=== PATIENT | female | born 1945 | race Caucasian/White ===

== ENCOUNTER 2019-10-04 16:36 | Observation (INO) | payer OTHER ==
--- OUTSIDE RECORDS SUMMARY | 2019-10-04 16:38 | XMS REPORT | Clinical Summary ---
:1945 Author Organization [facility] Address [address] [place] [address] Care Team Providers Name Role Phone [place] Daily MD Primary Care Provider Allergies Active Allergy Reactions Severity Noted Date Comments Morphine Medications Medication Sig Dispensed Refills Start End Date Status Date DENAVIR 1 % cream APPLY THREE (3) 0 Active TIMES DAILY FOR 7 FOUR (4) DAYS. valACYclovir 1 DAY DOSE AT 0 Act anali (VALTREX) 500 MG ONSET OF 7 tablet SYMPTOMS: TAKE 4 TABLETS IMMEDIATELY TYHEN 4 TABLETS 12 HOURS LATER. rosuvastatin TAKE 1 TABLET 90 tablet 0 12/24/19 Act anlai (CRESTOR) 10 MG (10 MG TOTAL) BY 9 20 tablet MOUTH NIGHTLY. FOR CHOLESTEROL LYSINE ORAL Take by mouth. 0 Act anali cholecalciferol, Take 1 capsule 12 capsule 3 0 Discontinued vitamin D3, (50,000 Units 9 20 (Med List 50,000 unit total) by mouth Cl eanup) capsule once a week. rosuvastatin Take 1 tablet 90 tablet 0 12/24/19 Dis continued (CRESTOR) 10 MG (10 mg total) by 9 19 (Reorder) tablet mouth nightly. For cholesterol Active Problems Problem Noted Date Constipation 08/29/2017 History of malignant neoplasm of breast 08/29/2017 Osteoporosis 08/29/2017 Encounters Date Type Specialty Care Team Description 10/02/2019 Office Visit Internal Medicine Marcus Daily Medicare annual wellness visit, subsequent (Primary Dx); MD [place] Mixed hyperlipi demia; Screening for b reast cancer; Screening for d iabetes mellitus; Vitamin D defic iency; Age-related ost eoporosis without current pathological fracture; Atherosclerosis ; History of gentry gnant neoplasm of breast; Skin lesion 10/02/2019 Travel 07/17/2019 Travel 03/21/2019 Telephone Internal Medicine Marcus Daily MD 12/23/2018 Refill Internal Medicine Marcus Daily MD 10/05/2018 Hospital Encounter Radiology Marcus Daily Mixed hy perlipidemia MD [place] 10/05/2018 Hospital Encounter Radiology Marcus Daily Screenin g for breast MD [place] cancer after 10/03/2018 Immunizations Name Administration Dates Next Due Influenza, Unspecified 01/08/2016 Pneumococcal Conjugate 13-Valent 09/29/2018 Pneumococcal Polysaccharide 04/17/2013 Family History Medical History Relation Name Comments Cancer Sister Relation Name Status Comments Sister Social History Tobacco Use Types Packs/Day Years Used Date Current Every Day Smoker Smokeless Tobacco: Never Used Alcohol Use Drinks/Week oz/Week Comments No Sex Assigned at Date Recorded Not on file Job Start Date Occupation Industry Not on file Not on file Not on file Travel History Travel Start Travel End No recent travel history available. COVID-19 Exposure Response Date Recorded In the last month, have you been in contact with No / Unsure 10/02/2019 8:41 AM CDT someone who was confirmed or suspected to have Coronavirus / COVID-19? Last Filed Vital Signs Vital Sign Reading Time Taken Comments Blood Pressure 118/74 10/02/2019 8:58 AM CDT Pulse 70 10/02/2019 8:58 AM CDT Temperature 36.7 C (98 F) 10/02/2019 8:58 AM CDT Respiratory Rate 18 10/02/2019 8:58 AM CDT Oxygen Saturation 100% 10/02/2019 8:58 AM CDT Inhaled Oxygen Concentration - - Weight 58.5 kg (129 lb) 10/02/2019 8:58 AM CDT Height 170.2 cm (5' 7") 10/02/2019 8:58 AM CDT Body Mass Index 20.2 10/02/2019 8:58 AM CDT Plan of Treatment Health Maintenance Due Date Last Done Comments SHINGLES VACCINES (#1) 09/23/1993 INFLUENZA VACCINE 11/08/2019 01/08/2016 COLONOSCOPY SCREENING 02/17/2026 02/18/2016 65+ PNEUMOCOCCAL VACCINE Completed 09/29/2018, 04/17/2013 Procedures Procedure Name Priority Date/Time Associated Diagnosis Comme nts VITAMIN D 25 HYDROXY Routine 10/02/2019 10:05 Medicare annual Results for this LEVEL AM CDT wellness visit, procedure ar e in subsequent the results Vitamin D defici ency section. Age-related osteoporosis without current pathological fracture VITAMIN B12 LEVEL Routine 10/02/2019 10:05 Medicare annual Res ults for this AM CDT wellness visit, procedure ar e in subsequent the results section. THYROID STIMULATING Routine 10/02/2019 10:05 Medicare annual R esults for this HORMONE AM CDT wellness visit, procedure ar e in subsequent the results section. URINALYSIS, COMPLETE, Routine 10/02/2019 10:05 Medicare annual Results for this WITH REFLEX TO AM CDT wellness visit, procedure are in CULTURE subsequent the results section. LIPID PANEL Routine 10/02/2019 10:05 Medicare annual Results for this AM CDT wellness visit, procedure ar e in subsequent the results Mixed hyperlipidemia section . HEMOGLOBIN A1C Routine 10/02/2019 10:05 Medicare annual Result s for this AM CDT wellness visit, procedure ar e in subsequent the results Screening for diabetes secti on. mellitus COMPREHENSIVE Routine 10/02/2019 10:05 Medicare annual Results for this METABOLIC PANEL AM CDT wellness visit, procedure are in subsequent the results section. CBC WITH PLATELET AND Routine 10/02/2019 10:05 Medicare annual Results for this DIFFERENTIAL AM CDT wellness visit, procedure ar e in subsequent the results section. URINE CULTURE Routine 10/02/2019 10:05 Results fo r this AM CDT procedure are i n the results section. CT CARDIAC CALCIUM Routine 10/05/2018 12:40 Mixed hyperlipidem ia Results for this SCORE PM CDT procedure are i n the results section. MAMMO BREAST SCREEN Routine 10/05/2018 12:05 Screening for lexy ast Results for this TOMOSYNTHESIS PM CDT cancer procedure are in BILATERAL the results section. after 10/03/2018 Results URINALYSIS, COMPLETE, WITH REFLEX TO CULTURE (10/02/2019 10:05 AM CDT) Color, UA YELLOW YELLOW [facility] [place] Appearance CLEAR CLEAR [facility] [place] Specific gravity, 1.007 1.001 - 1.035 [facility] urine [place] pH, urine 5.5 5.0 - 8.0 [facility] [place] Glucose, urine NEGATIVE NEGATIVE [facility] [place] Bilirubin, UA NEGATIVE NEGATIVE [facility] [place] Ketones, UA NEGATIVE NEGATIVE [facility] [place] Occult blood, TRACE (A) NEGATIVE [facility] urine [place] Protein, UA NEGATIVE NEGATIVE [facility] [place] Nitrite, UA NEGATIVE NEGATIVE [facility] [place] Leukocyte TRACE (A) NEGATIVE [facility] esterase, UA [place] WBC, UA NONE SEEN < OR = 5 /HPF [facility] [place] RBC, UA NONE SEEN < OR = 2 /HPF [facility] [place] Squamous NONE SEEN < OR = 5 /HPF [facility] epithelial cells, [place] UA Bacteria, UA NONE SEEN NONE SEEN /HPF [facility] [place] Hyaline casts, UA NONE SEEN NONE SEEN /LPF [facility] [place] Reflex CULTURE [facility] [place] RESULTS TO FOLLOW Specimen Narrative Performed At FASTING:YES [facility] FASTING: YES Resulting Agency Comment Performing Organization Information: Site ID: [id number]: [facility] Address: [address] [place] [phone] Director: Brandon Neff Performing Organization Address City/[facility] Centercode Phone Number [employer] [address] [address] Vitamin D 25 hydroxy level (10/02/2019 10:05 AM CDT) Vitamin D, 24 (L) 30 - 100 [facility] 25-hydroxy Comment: ng/mL [place] Vitamin D Status 25-OH Vitamin D: Deficiency: <20 ng/mL Insufficiency: 20 - 29 ng/mL Optimal: > or = 30 ng/mL For 25-OH Vitamin D testing on patients on D2-supplementation and patients for whom quantitation of D2 and D3 fractions is required, the [facility](T M) 25-OH VIT D, (D2,D3), LC/MS/MS is recommended: order code 95940 (patients >2yrs). See Note 1 Note 1 For additional information, please refer to http://education.farmaciamarket/faq/BMW457 (This link is being provided for informational/ educational purposes only.) Specimen Blood Narrative Performed At FASTING:YES [facility] FASTING: YES Resulting Agency Comment Performing Organization Information: Site ID: [facility]: [facility] Address: [address] [place] [phone] Director: Brandon Neff Performing Organization Address City/[facility]/Zipcode Phone Number [employer] [address] [place] [address] CBC with platelet and differential (10/02/2019 10:05 AM CDT) WBC 7.3 3.8 - 10.8 [facility] Thousand/uL [place] RBC 4.86 3.80 - 5.10 [facility] Million/uL [place] HGB 14.9 11.7 - 15.5 [facility] g/dL [place] HCT 45.4 (H) 35.0 - 45.0 % [facility] [place] MCV 93.4 80.0 - 100.0 fL [facility] [place] MCH 30.7 27.0 - 33.0 pg [facility] [place] MCHC 32.8 32.0 - 36.0 [facility] g/dL [place] RDW 12.8 11.0 - 15.0 % [facility] [place] Platelet count 219 140 - 400 [facility] Thousand/uL [place] MPV 10.6 7.5 - 12.5 fL [facility] [place] Neutrophils, absolute 4,358 1,500 - 7,800 [facility] cells/uL [place] Lymphocytes, absolute 2,380 850 - 3,900 [facility] cells/uL [place] Monocytes, absolute 431 200 - 950 [facility] cells/uL [place] Eosinophils, absolute 80 15 - 500 [facility] cells/uL [place] Basophils, absolute 51 0 - 200 [facility] cells/uL [place] Neutrophils 59.7 % [facility] [place] Lymphocytes 32.6 % [facility] [place] Monocytes 5.9 % [facility] [place] Eosinophils 1.1 % [facility] [place] Basophils + RC 0.7 % [facility] [place] Specimen Blood Narrative Performed At FASTING:YES [facility] FASTING: YES Resulting Agency Comment Performing Organization Information: Site ID: [facility]: [facility] Address: [address] [place] [phone] Director: Brandon Neff Performing Organization Address City/State/Zipcode Phone Number [facility] [address] [address] Urine culture (10/02/2019 10:05 AM CDT) Pathologist Sig nature Urine culture SEE NOTE [facility] Comment: [place] CULTURE, URINE, ROUTINE Micro Number: [id number] Test Status: Final Specimen Source: URINE Specimen Quality: Adequate Result: No Growth Specimen Narrative Performed At FASTING:YES [facility] FASTING: YES Resulting Agency Comment Performing Organization Information: Site ID: [facility]: [facility] Address: [address] [place] [phone] Director: Brandon Neff Performing Organization Address [facility] Centercode Phone Number [employer] [address] [address] Thyroid stimulating hormone (10/02/2019 10:05 AM CDT) Pathologist Sig nature TSH 2.75 0.40 - 4.50 mIU/L [facility] Specimen Blood Narrative Performed At FASTING:YES [facility] FASTING: YES Resulting Agency Comment Performing Organization Information: Site ID: [facility] Name: [facility] Address: [address] [place] [phone] Director: Brandon Neff Performing Organization Address [facility] Phone Number [employer] [address] [address] Hemoglobin A1c (10/02/2019 10:05 AM CDT) Pathologist [facility] Hemoglobin A1C 5.7 (H) <5.7 % of [facility] Comment: total Hgb [place] For someone without known diabetes, a hemoglobin A1c value between 5.7% and 6.4% is consistent with prediabetes and should be confirmed with a follow-up test. For someone with known diabetes, a value <7% indicates that their diabetes is well controlled. A1c targets should be individualized based on duration of diabetes, age, comorbid conditions, and other considerations. This assay result is consistent with an increased risk of diabetes. Currently, no consensus exists regarding use of hemoglobin A1c for diagnosis of diabetes for children. Specimen Blood Narrative Performed At FASTING:YES [facility] FASTING: YES Resulting Agency Comment Performing Organization Information: Site ID: [facility]: [facility] Address: [address] [place] [phone] Director: Brandon Neff Performing Organization Address [facility] Centercoky Phone Number [employer] [address] [address] Vitamin B12 level (10/02/2019 10:05 AM CDT) Pathologist [facility] Vitamin B12 264 200 - 1,100 [facility] Comment: pg/mL [place] Please Note: Although the reference range for vitamin B12 is 200-1100 pg/mL, it has been reported that betwe en 5 and 10% of patients with values between 200 and 400 pg/mL may experience neuropsychiatric and hematologic abnormalities due to occult B12 deficiency; less than 1% of patients with values above 400 pg/mL will have symp toms. Specimen Blood Narrative Performed At FASTING:YES [facility] FASTING: YES Resulting Agency Comment Performing Organization Information: Site ID: [facility] Name: [facility] Address: [address] [place] [phone] Director: Brandon Neff Performing Organization Address City/State/Zipcode Phone Number [employer] [address] [address] Lipid panel (10/02/2019 10:05 AM CDT) [facility] Cholesterol, total 245 (H) <200 mg/dL [facility] HDL cholesterol 53 > OR = 50 [facility] mg/dL [place] Triglycerides 169 (H) <150 mg/dL [facility] LDL cholesterol 160 (H) mg/dL (calc) [facility] calculated Comment: [place] Reference range: <100 Desirable range <100 mg/dL for primary prevention; <70 mg/dL for patients with CHD or diabetic patients with > or = 2 CHD risk factors. LDL-C is now calculated using the Kvng-Azul calculation, which is a validated novel method providi ng better accuracy than the Friedewald equation in the estimation of LDL-C. Kvng WEAVER et al. KULWANT. 2013;310(19): 4859-5921 (http://education.DGSE.Alta Analog/faq/UNB561) Cholesterol/HDL 4.6 <5.0 (calc) [facility] Non-HDL cholesterol 192 (H) <130 mg/dL [facility] Comment: (calc) [place] For patients with diabetes plus 1 major ASCVD risk factor, treating to a non-HDL-C goal of <100 mg/dL (LDL-C of <70 mg/dL) is considered a therapeutic option. Specimen Blood Narrative Performed At FASTING:YES [facility] FASTING: YES Resulting Agency Comment Performing Organization Information: Site ID: [facility]: [facility] Address: [address] [place] [phone] Director: Brandon Neff Performing Organization Address [facility]/Zipcode Phone Number [employer] [place] [address] [place] [address] Comprehensive metabolic panel (10/02/2019 10:05 AM CDT) Glucose 89 65 - 99 [facility] Comment: mg/dL [place] Fasting reference interval BUN 9 7 - 25 mg/dL [facility] [place] Creatinine 0.80 0.60 - 0.93 [facility] Comment: mg/dL [place] For patients >49 years of age, the reference limit for Creatinine is approximately 13% higher for people identified as -[place]. EGFR Non-Afr. 72 > OR = 60 [facility] [place] mL/min/1.73m [place] 2 EGFR 83 > OR = 60 [facility] [place] mL/min/1.73m [place] 2 BUN/creatinine NOT APPLICABLE 6 - 22 [facility] ratio (calc) [place] Sodium 139 135 - 146 [facility] mmol/L [place] Potassium 4.2 3.5 - 5.3 [facility] mmol/L [place] Chloride 102 98 - 110 [facility] mmol/L [place] CO2 30 20 - 32 [facility] mmol/L [place] Calcium 9.3 8.6 - 10.4 [facility] mg/dL [place] Protein 7.2 6.1 - 8.1 [facility] g/dL [place] Albumin, S 4.4 3.6 - 5.1 [facility] g/dL [place] Globulin, total 2.8 1.9 - 3.7 [facility] g/dL (calc) [place] Albumin/globulin 1.6 1.0 - 2.5 [facility] ratio (calc) [place] Total bilirubin 0.4 0.2 - 1.2 [facility] mg/dL [place] Alkaline 69 37 - 153 U/L [facility] phosphatase [place] AST 16 10 - 35 U/L [facility] [place] ALT 12 6 - 29 U/L [facility] [place] Specimen Blood Narrative Performed At FASTING:YES [facility] FASTING: YES Resulting Agency Comment Performing Organization Information: Site ID: RGA Name: [facility] Address: [address] [place] [address] Director: Brandon Neff Performing Organization Address City/[facility]/Zipcode Phone Number [employer] [place] [address] [place] [address] Ct cardiac calcium score (10/05/2018 12:40 PM CDT) Specimen Narrative Performed At EXAMINATION: CT CARDIAC CALCIUM SCORE RADIANT CLINICAL HISTORY: E78.2 Mixed hyperlipidemia, CAD ri sk intermediate asymptomatic, mixed HLD elev apo B - please eval coronaries COMPARISON: Chest CT from September 02 8. IMPRESSION: Sequential 2.[address] cuts were obtained through the est using GE LightSpeed VCT [address] scanner with ECG gating. In teractive image viewing and volumetric display and analysis were also performed. The CAC score was quantified using the Agatston scoring method. Agatston total coronary artery calcium s core: 0 Left Main (LM): 0 Left Anterior Descending (LAD): 0 Left Circumflex (LCx): 0 Right Coronary Artery (RCA): 0 Posterior Descending Artery (PDA): 0 Agatston Calcium Score (total) Extent of Atherosclerosis 0-Normal 1-10 - Minimal extent of atherosclerosis 10-100 - Mild extent of atherosclerosis 100-400 - Moderate extent of atheroscler osis > 400 - Severe extent of atherosclerosis RECOMMENDATION: A score of 0 places the patient in the 0th percentile rank. That means 100% of the females at the ages from 71- 75 have a higher calcium score. Continue primary preventative strategies (score zero). INCIDENTAL FINDINGS: 1. Aortic calcifications. 2. Stable 3-4 mm solid nodule in the right middle lo be, 3 mm groundglass nodule in the lingula and ar eas of mucous plugging. 3. Trace pericardial effusion. [id number] Procedure Note Hm Interface, Radiology Results Incoming - 10/05/2018 1:34 PM CDT EXAMINATION: CT CARDIAC CALCIUM SCORE CLINICAL HISTORY: E78.2 Mixed hyperlipi demia, CAD risk intermediate asymptomatic, mixed HLD elev apo B - please eval coronaries COMPARISON: Chest CT from September 02, 2017 . IMPRESSION: Sequential 2.[address] cuts were obtained through the chest using GE LightSpeed VCT [address] scanner with ECG gating. Interactive image viewing and volumetric display and analysis were also performed. The CAC score was quantified using the Agatston scoring method. Agatston total coronary artery calcium s core: 0 Left Main (LM): 0 Left Anterior Descending (LAD): 0 Left Circumflex (LCx): 0 Right Coronary Artery (RCA): 0 Posterior Descending Artery (PDA): 0 Agatston Calcium Score (total) Extent of Atherosclerosis 0-Normal 1-10 - Minimal extent of atherosclerosis 10-100 - Mild extent of atherosclerosis 100-400 - Moderate extent of atheroscler osis > 400 - Severe extent of atherosclerosis RECOMMENDATION: A score of 0 places the patient in the 0 th percentile rank. That means 100% of the females at the ages from 71-75 have a higher calcium score. Continue primary preventative strategies (score zero). INCIDENTAL FINDINGS: 1. Aortic calcifications. 2. Stable 3-4 mm solid nodule in the ri ght middle lobe, 3 mm groundglass nodule in the lingula and areas of mucous plugging. 3. Trace pericardial effusion. [id number] Performing Organization Address City/[facility]/Zipcode Phone Number [employer] [address] [place] [address] Mammo Breast Screen Tomosynthesis Bilateral (10/05/2018 12:05 PM CDT) Specimen Narrative Performed At PROCEDURE: MAMMO BREAST SCREEN TOMOSYNTH ESIS BILATERAL [employer] Computer aided detection was utilized for the interpre tation of the digital bilateral screening mammography with tomosynthesis. COMPARISON: None available. INDICATION: 73-year-old female with a history of right breast malignancy with lumpectomy and radiation in 2000. She presents fo r routine screening. FINDINGS: The breast are heterogenously dense, which m ay obscure small masses. There is a postsurgical scar with associated dystrophi c calcifications in the right superior posterior depth. No significant mass, asymmetry or architectural distortion is identified i n either breast. IMPRESSION: No mammographic evidence o f malignancy. RECOMMENDATION: Annual screening mammogr am. BI-RADS 2: BENIGN This facility is accredited by The [employer] for Mammography. A negative x-ray report should not delay biopsy if a d ominant or clinically suspicious mass is present. Not all cancers are identified by x-ray. [id number] Performing Organization Address City/State/Zipcode Phone Number [employer] [address] [place] [address] after 10/03/2018 Insurance Payer Benefit Plan / Subscriber ID Effective Dates Phone Addre ss Type Group HUMANA MEDICARE HUMANA MEDICARE xxxxxxxxx 2017-Present PPO PPO/PFFS/ERS [facility] Advance Directives For more information, please contact: [phone] Type Date Recorded Patient Director Marketing Communications Explanati on Advance Directives, Living Will and Medical Power of Skiagrapher
--- OUTSIDE RECORDS SUMMARY | 2019-10-04 16:39 | XMS REPORT | Continuity of Care Document ---
:1945 Author Organization [facility] t Address [address] [place] [address] Care Team Providers Name Role Phone Rome Daily MD Primary Care Physician Rome Daily MD Attending Clinician Payers Payer Name Policy Type Policy Number Effective Date Expiration Source Date HUMANA xxxxxxxxx 2017 [place] MEDICAREHUMANA 00:00:00 [place] MEDICARE PPO/PFFS/ERS MCRxxxxxxxxx1/ 8-PresentPPO Problems Condition Condition Condition Status Onset Resolution Last Treating Co mments Source Name Details Category Date Date Treatment Clinician Date Constipati Constipati Disease Active [place] on 08-29 Methodi 00:00: st 00 History of History of Disease Active [place] malignant malignant 08-29 Meth iván neoplasm neoplasm 00:00: st of breast of breast 00 Osteoporos Osteoporos Disease Active [place] is is 08-29 Methodi 00:00: st 00 Allergies, Adverse Reactions, Alerts Allergy Allergy Status Severity Reaction(s) Onset Inactive Treating Comm ents Source Name Type Date Date Clinician Morphine Propensi Active [place] ty to Methodi adverse st reaction s to drug Family History Family Member Diagnosis Comments Start Date Stop Date Source Natural [facility] Social History Social Habit Start Date Stop Date Quantity Comments Source Sex Assigned At [facility] ethodist Exposure to Not sure [place] Metho dist SARS-CoV-2 (event) Alcohol intake 2019-10-02 2019-10-02 [facility] 00:00:00 non-drinker of alcohol (finding) Smoking Status Start Date Stop Date Source Current every day smoker 2019-10-02 00:00:00 Valeria ston [facility] Medications Ordered Filled Start Stop Current Ordering Indication Dosage Frequency Signature Comments Components Source Medication Medication Date Date Medication? Clinician (SIG) Name Name LYSINE ORAL Yes Take by Valeria ston 8-25 mouth. Methodi 09:00: st 06 rosuvastati 2018-02 2020- No 10mg QD TAKE 1 Valeria ston n (CRESTOR) 1-17 11-16 TABLET (10 M ethodi 10 MG 00:00: 23:59 MG TOTAL) st tablet 00 :00 BY MOUTH NIGHTLY. FOR CHOLESTERO L cholecalcif No [id number] Q7D Take 1 [place] danette, 8-25 capsule Methodi vitamin D3, 00:00: 00:00 (50,000 st 50,000 unit 00 :00 Units capsule total) by mouth once a week. rosuvastati No 10mg QD Take 1 Valeria ston n (CRESTOR) 8- 11-16 tablet (10 M ethodi 10 MG 00:00: 00:00 mg total) st tablet 00 :00 by mouth nightly. For cholestero l DENAVIR 1 % Yes APPLY [place] cream - THREE (3) Methodi 00:00: TIMES st 00 DAILY FOR FOUR (4) DAYS. valACYclovi Yes 1 DAY DOSE Dimas r (VALTREX) 6-28 AT ONSET Meth iván 500 MG 00:00: OF st tablet 00 SYMPTOMS: TAKE 4 TABLETS IMMEDIATEL Y TYHEN 4 TABLETS 12 HOURS LATER. Immunizations Ordered Immunization Filled Immunization Date Status Commen ts Source Name Name Pneumococcal 2018-09-29 Completed [place] Conjugate 13-Valent 00:00:00 [facility] dist Influenza, 2016-01-08 Completed [place] Unspecified 00:00:00 [facility] Pneumococcal 2013-04-17 Completed [place] Polysaccharide 00:00:00 [facility] Vital Signs Vital Name Observation Time Observation Value Comments Source Systolic blood 2019-10-02 08:58:00 118 mm[Hg] [place] [facility] pressure Diastolic blood 2019-10-02 08:58:00 74 mm[Hg] [place] [facility] pressure Heart rate 2019-10-02 08:58:00 70 /min Wing Brito Body temperature 2019-10-02 08:58:00 36.67 Sophie Aba jan [facility] Respiratory rate 2019-10-02 08:58:00 18 /min Aba jan [facility] Body height 2019-10-02 08:58:00 170.2 cm Wing Brito Body weight 2019-10-02 08:58:00 58.514 kg Wing Brito BMI 2019-10-02 08:58:00 20.20 kg/m2 Wing Brito Oxygen saturation in 2019-10-02 08:58:00 100 /min Wing Brito Arterial blood by Pulse oximetry Procedures Procedure Date / Time Performed Performing Clinician Sourc e URINE CULTURE 2019-10-02 10:05:00 Marcus Daily CBC WITH PLATELET AND 2019-10-02 10:05:00 Marcus Daily DIFFERENTIAL COMPREHENSIVE METABOLIC 2019-10-02 10:05:00 Marcus Daily PANEL HEMOGLOBIN A1C 2019-10-02 10:05:00 Marcus Daily LIPID PANEL 2019-10-02 10:05:00 Marcus Daily URINALYSIS, COMPLETE, 2019-10-02 10:05:00 Marcus Daily WITH REFLEX TO CULTURE THYROID STIMULATING 2019-10-02 10:05:00 Marcus Daily HORMONE VITAMIN B12 LEVEL 2019-10-02 10:05:00 Marcus Daily VITAMIN D 25 HYDROXY 2019-10-02 10:05:[address] CARDIAC CALCIUM SCORE 2018-10-05 12:40:00 Marcus Daily MAMMO BREAST SCREEN 2018-10-05 12:05:28 Marcus Daily TOMOSYNTHESIS BILATERAL Plan of Care Planned Activity Planned Date Details Comments Source Future Scheduled 2026-02-17 COLONOSCOPY SCREENING Yovany Brito Test 00:00:00 [code = COLONOSCOPY SCREENING] Future Scheduled 2019-11-08 INFLUENZA VACCINE Abato n Sabianist Test 00:00:00 [code = INFLUENZA VACCINE] Future Scheduled 1993-09-23 SHINGLES VACCINES [place] [facility] Test 00:00:00 (#1) [code = SHINGLES VACCINES (#1)] Encounters Start End Encounter Admission Attending Care Care Encounter Source Date/Time Date/Time Type Type Clinicians Facility Department ID 2019-10-02 2019-10-02 Outpatient [facility] [id number] [place] 00:00:00 00:00:[address]ARCUS [address] Results Test Description Test Time Test Comments Results Result Comments Source Comprehensive metabolic panel 2019-10-04 09:33:00 Test Item Value Reference Range Interpretation Comme nts Glucose (test code = 89 mg/dL 65-99 Fasting 2345-7) reference inter diana BUN (test code = 9 mg/dL 08-31 3094-0) Creatinine (test code 0.80 mg/dL 0.6-0.93 For pa tients >49 years of = 2160-0) age, the refere nce limitfor Creati nine is approximately 1 3% higher for peopleident ified as -Helen n. EGFR Non-Afr. 72 > OR = 60 Australian (test code = mL/min/1.73m2 2775) EGFR 83 > OR = 60 (test code = 33393-8) mL/min/1.73m2 BUN/creatinine ratio NOT APPLICABLE 6- 22 (calc) (test code = 3097-3) Sodium (test code = 139 mmol/L 394-659 4948-2) Potassium (test code 4.2 mmol/L 3.5-5.3 = 2823-3) Chloride (test code = 102 mmol/L 98-110 5-0) CO2 (test code = 30 mmol/L 20-32 2027-9) Calcium (test code = 9.3 mg/dL 8.6-10.4 54797-0) Protein (test code = 7.2 g/dL 6.1-8.1 2885-2) Albumin, S (test code 4.4 g/dL 3.6-5.1 = 1751-7) Globulin, total (test 2.8 1.9- 3.7 g/dL code = 95336-9) (calc) Albumin/globulin 1.6 1.0- 2.5 (calc) ratio (test code = 1759-0) Total bilirubin (test 0.4 mg/dL 0.2-1.2 code = 1974-2) Alkaline phosphatase 69 U/L 37-153 (test code = 6768-6) AST (test code = 16 U/L 10-35 1920-8) ALT (test code = 12 U/L 6-29 1742-6) RAY (test code = RAY) FASTING:YESFASTING: YES RAC (test code = RAC) Performing Organization Information: Site ID: HERBERT [facility]: [facility] Address: [address] [place] [phone] Director: Brandon Neff [place] MethodistLipid [id number] 09:33:00 Test Item Value Reference Range Interpretation Comments Cholesterol, total 245 mg/dL <200 H (test code = 2093-3) HDL cholesterol 53 mg/dL > OR = 50 (test code = 2085-9) Triglycerides (test 169 mg/dL <150 H code = 2571-8) LDL cholesterol 160 mg/dL (calc) H Reference ra nge: calculated (test <100 Desira ble code = 93373-1) range <100 m g/dL for primary prevention; <7 0 mg/dL for patients with C HD or diabetic patients with > or = 2 CHD risk factors. LDL-C is now calculated using the Kvng-Jorge Alberto calculation, which is a validated novel method providin g better accuracy than the Friedewald equation in the estimation of LDL-C. Kvng S S et al. KULWANT. 2013;310(19): 8824-0111 (http://educati on .[employer] .com/faq/RHI621 ) Cholesterol/HDL 4.6 <5.0 (calc) ratio (test code = 9830-1) Non-HDL cholesterol 192 <130 mg/dL H For [place] ents with (test code = (calc) diabetes plus 1 08922-3) major ASCVD ris k factor, treatin g to a non-HDL-C goal of <100 mg/dL (LDL-C of <70 mg/dL) is considered a therapeutic option. RAY (test code = FASTING:YESFASTING RAY) : YES RAC (test code = Performing RAC) Organization Information: Site ID: HEBRERT [facility]: [facility] Address: [address] [place] [address] Director: Brandon Neff Lab Interpretation Abnormal (test code = 74237-3) [place] MethodistVitamin B12 [id number] 09:33:00 Test Item Value Reference Interpretation Comments Range Vitamin B12 264 pg/mL 200-1100 Please Note: A lthough the (test code = reference range for 2132-9) itmbpfkC33 is 2 00-1100 pg/mL, it has b een reported that between5 a nd 10% of patients with v alues between 200 and 400pg/m L may experience neur opsychiatric and hematologic abnormalities due to occult B 12 deficiency; les s than 1%of patients with v alues above 400 pg/mL will have symptoms. RAY (test FASTING:YESFASTIN code = RAY) G: YES RAC (test Performing code = RAC) Organization Information: Site ID: RGA Name: [facility] Address: [address] [place] [address] Director: Brandon Neff [place] MethodistHemoglobin [id number] 09:33:00 Test Item Value Reference Interpretation Comments Range Hemoglobin A1C 5.7 <5.7 % of H For someone w ithout (test code = total Hgb known diabetes, a 4548-4) hemoglobin A1c value between 5.7% an d 6.4% is consist ent withprediabetes and should be confi rmed with a follow-u p test. For someo ne with known diab etes, a value <7%indicates that their diabetes is well controlled . C2yhiemvfh shou ld be individualized based on duration ofdiabetes, age , comorbid condit ions, and otherconsiderat ions. This assay resu lt is consistent with an increased risko f diabetes. Curre ntly, no consensus ex ists regarding use ofhemoglobin A1 c for diagnosis of diabetes for children. RAY (test code = FASTING:YESFASTIN RAY) G: YES RAC (test code = Performing RAC) Organization Information: Site ID: RGA Name: [facility] Address: [address] [place], [place] [id number] Director: Brandon Neff Lab Interpretation Abnormal (test code = 31372-9) [place] MethodistThyroid stimulating [id number] 09:33:00 Test Item Value Reference Range Interpretation Comments TSH (test code = 2.75 0.40- 4.50 mIU/L 3016-3) RAY (test code = FASTING:YESFASTING: YES RAY) RAC (test code = Performing Organization RAC) Information: Site ID: RGA Name: [facility] Address: [address] [place], [place] [id number] Director: Brandon BritoUrine [id number] 09:33:00 Test Item Value Reference Range Interpretation Comments Urine culture SEE NOTE CULTURE, URI NE, (test code = ROUTINE Mendoza ro 630-4) Number: [id number] Test Status: Final Specimen Source: URINE Specimen Qualit y: Adequate Result: No Growth RAY (test code = FASTING:YESFASTING: RAY) YES RAC (test code = Performing RAC) Organization Information: Site ID: [facility] Name: [facility] Address: [address] [place] [address] Director: Brandon Neff [place] MethodistCBC with platelet and [id number] 09:33:00 Test Item Value Reference Range Interpretation Comments WBC (test code = 7.3 3.8- 10.8 6690-2) Thousand/uL RBC (test code = 789-8) 4.86 3.80- 5.10 Million/uL HGB (test code = 718-7) 14.9 g/dL 11.7-15.5 HCT (test code = 45.4 % 35-45 H 4544-3) MCV (test code = 787-2) 93.4 fL 80-100 MCH (test code = 785-6) 30.7 pg 27-33 MCHC (test code = 32.8 g/dL 32-36 786-4) RDW (test code = 788-0) 12.8 % 11-15 Platelet count (test 219 140- 400 code = 777-3) Thousand/uL MPV (test code = 776-5) 10.6 fL 7.5-12.5 Neutrophils, absolute 4358 1,500 - 7,800 (test code = 751-8) cells/uL Lymphocytes, absolute 2380 850- 3,900 (test code = 731-0) cells/uL Monocytes, absolute 431 200- 950 cells/uL (test code = 742-7) Eosinophils, absolute 80 15- 500 cells/uL (test code = 711-2) Basophils, absolute 51 0- 200 cells/uL (test code = 704-7) Neutrophils (test code 59.7 % = 770-8) Lymphocytes (test code 32.6 % = 736-9) Monocytes (test code = 5.9 % 5905-5) Eosinophils (test code 1.1 % = 713-8) Basophils + RC (test 0.7 % code = 706-2) RAY (test code = RAY) FASTING:YESFASTING: YES RAC (test code = RAC) Performing Organization Information: Site ID: A Name: [facility] Address: [address] [place] [phone] Director: Brandon Neff Lab Interpretation Abnormal (test code = 04578-0) [place] MethodistVitamin D 25 hydroxy [id number] 09:33:00 Test Item Value Reference Range Interpretation Comments Vitamin D, 24 ng/mL 30-100 L Vitamin D Statu s 25-hydroxy (test 25-O H code = 1988-04) Vitamin D: Deficiency: <2 0 ng/mLInsufficie nc y: 20 - 29 ng/mLOptimal: > o r = 30 ng/mL For 25-OH Vitamin D testing on patients on D2-supplementat io n and patients for whom quantitation of D2 and D3 fractions is required, the QuestAssureD(TM )2 5-OH VIT D, (D2,D3), LC/MS/ MS is recommended: order code 9288 8 (patients >2yrs).See Note 1 Note 1 For additional information, please refer to http://educatio n. [employer]. com/faq/ZXN479 (This link is being provided for informational/e du cational purpos es only.) RAY (test code = FASTING:YESFASTING RAY) : YES RAC (test code = Performing RAC) Organization Information: Site ID: A [facility]: [facility] Address: [address] [place] [phone] Director: Brandon Neff Lab Interpretation Abnormal (test code = 29514-3) [place] MethodistURINALYSIS, COMPLETE, WITH REFLEX TO [id number] 09:33:00 Test Item Value Reference Range Interpretation Comments Color, UA (test code = YELLOW YELLOW 5778-6) Appearance (test code = CLEAR CLEAR 5767-9) Specific gravity, urine 1.007 1.001-1.035 (test code = 5811-5) pH, urine (test code = 5.5 5.0-8.0 5803-2) Glucose, urine (test NEGATIVE NEGATIVE code = 67594-0) Bilirubin, UA (test code NEGATIVE NEGATIVE = 5770-3) Ketones, UA (test code = NEGATIVE NEGATIVE 2514-8) Occult blood, urine TRACE NEGATIVE A (test code = 5794-3) Protein, UA (test code = NEGATIVE NEGATIVE 25422-8) Nitrite, UA (test code = NEGATIVE NEGATIVE 5802-4) Leukocyte esterase, UA TRACE NEGATIVE A (test code = 5799-2) WBC, UA (test code = NONE SEEN < OR = 5 /HPF 5821-4) RBC, UA (test code = NONE SEEN < OR = 2 /HPF 24542-0) Squamous epithelial NONE SEEN < OR = 5 /HPF cells, UA (test code = 62730-3) Bacteria, UA (test code NONE SEEN NONE SEEN /HPF = 5769-5) Hyaline casts, UA (test NONE SEEN NONE SEEN /LPF code = 5796-8) Reflex (test code = CULTURE INDICATED - 630-4) RESULTS TO FOLLOW RAY (test code = RAY) FASTING:YESFASTING: YES RAC (test code = RAC) Performing Organization Information: Site ID: RGA Name: [facility] Address: [address] [place] [phone] Director: Brandon Neff Lab Interpretation (test Abnormal code = 91556-2) [facility] [id number] 13:30:51Hm Interface, Radiology Results 10/05/2018 1:34 PM CDTEXAMINATION: CT CARDIAC CALCIUM SCORECLINICAL HISTORY: E78.2 Mixed hyperlipidemia, CAD risk intermediate asymptomatic, mixed HLD elev apo B - please eval coronariesCOMPARISON: Chest CT from September 02, 2017.IMPRESSION:Sequential 2.[address] cuts were obtained through the chest using [employer] VCT [address] scanner with ECG gating. Interactive image viewing and volumetric display and analysis were also performed. The CAC score was quantified using the Agatston scoring method.Agatston total coronary artery calcium score: 0Left Main (LM): 0Left Anterior Descending (LAD): 0Left Circumflex (LCx): 0Right Coronary Artery (RCA): 0Posterior Descending Artery (PDA): 0Agatston Calcium Score (total) Extent of Atherosclerosis0-Normal 1-10 - Minimal extent of ofvjtliiegmmlzu99-438 - Mild extent of mwpqeykssbxrgyc867-558 - Moderate extentof atherosclerosis> 400 - Severe extent of atherosclerosisRECOMMENDATION:A score of 0 places the p atient in the 0th percentile rank. That means 100% of the females at the ages from 71-75 have a higher calcium score. Continue primary preventative strategies (score zero).INCIDENTAL FINDINGS:1. Aortic calcifications.2. Stable 3-4 mm solid nodule in the right middle lobe, 3 mm groundglass nodule in the lingula and areas of mucous plugging.3. Trace pericardial effusion.[id number] [facility] Tomosynthesis [id number] 12:54:33 PROCEDURE: MAMMO BREAST SCREEN TOMOSYNTHESIS BILATERAL Computer aided detection was utilized for theinterpretation of the digital bilateral screening mammography with tomosynthesis. COMPARISON: None available. INDICATION: 73-year-old female with a history of right breast malignancy with lumpectomy and radiation in 2000. She presents for routine screening. FINDINGS: The breast are heterogenously dense, which may obscure small masses.There is a postsurgical scar with associated dystrophic calcifications in the right superior posterior depth. No significant mass, asymmetry or architectural distortionis identified in either breast. IMPRESSION: No mammographic evidence of malignancy. RECOMMENDATION:Annual screening mammogram. BI-RADS 2: BENIGN This facility is accredited by [employer] for Mammography. A negative x- ray report should not delay biopsy if a dominant or clinically suspicious mass is present. Not all cancers are identified by x-ray. [id number] Brito
[2019-10-04 17:21] LABS: Absolute Lymphocytes (CBC) 1.8 K/uL (0.7-4.9); Basophils % 0.4 % (0-1.3); Hematocrit 47.2 % (36.0-45.0); Lymphocytes % 19.3 % (15.3-44.8); MPV 9.3 fL (7.6-11.3); RBC Red Blood Cell Count 5.11 M/uL (3.86-4.86)
[2019-10-04] MEDS ORDERED: MECLIZINE HCL 12.5 MG TAB ONE ×2 (17:37→20:00)
[2019-10-04] MEDS ORDERED: PROMETHAZINE 25 MG TABLET ONE (17:37)
[2019-10-04 17:39] LABS: Albumin 3.9 g/dL (3.4-5.0); Bilirubin Direct 0.1 mg/dL (0-0.2); Bilirubin Total 0.5 mg/dL (0.2-1.0); Potassium 4.3 mmol/L (3.5-5.1); Protein, Total 8.1 g/dL (6.4-8.2)
--- NOTE | 2019-10-04 17:54 | RAD REPORT ---
EXAM DESCRIPTION: CT - Head Brain Wo Cont - 10/04/2019 5:40 pm CLINICAL HISTORY: DIZZINESS Headache, drowsiness, dizziness and nausea COMPARISON: No comparisons TECHNIQUE: All CT scans are performed using dose optimization technique as appropriate and may inclu de automated exposure control or mA/KV adjustment according to patient size. FINDINGS: No intracranial hemorrhage, hydrocephalus or extra-axial fluid collection.Mild generalized brain atrophy is noted.No areas of brain edema or evidence of midline shift. The paranasal sinuses and mastoids are clear. The calvarium is intact. IMPRESSION: No acute intracranial abnormality.
[2019-10-04] MEDS ORDERED: NA CHLORIDE 0.9% 1,000 ML ONE ×2 (18:10→20:00)
[2019-10-04] MEDS ORDERED: DIAZEPAM 10 MG/2 ML INJ SYRINGE ONE (18:14)
[2019-10-04 19:19] LABS: Urine Bacteria <20 /HPF (<20)
[2019-10-04 19:20] LABS: Urine Culture Reflex Order NOT NEEDED; Urine Mucus 1+ /HPF (NONE SEEN)
[2019-10-04 19:28] LABS: Urine Blood 2+ (NEG); Urine Glucose NEGATIVE (NEG); Urine Protein TRACE (NEG); Urine Specific Gravity 1.025 (1.005-1.030)
[2019-10-04] MEDS ORDERED: PROMETHAZINE INJ 25 MG/ML AMP ONE (20:00)
[2019-10-04] MEDS ORDERED: ASPIRIN 81 MG CHEWABLE TABLET ONE (20:58)
[2019-10-04] MEDS ORDERED: FOLIC ACID 5 MG/ML VIAL ONE (21:00)
--- NOTE | 2019-10-04 21:30 | ER ---
Nurse's Notes [facility] Name: Melvina Wheeler Age: 74 yrs Sex: Female : 1945 Arrival Date: 10/04/2019 Time: 16:38 Bed 15 Private MD: Diagnosis: Dizziness and giddiness;Dehydration Presentation: 10/03 16:46 Chief complaint: Patient states: dizziness and nausea x 1 day. Coronavirus screen: sv Client denies travel out of the [place] in the last 14 days. At this time, the client does not indicate any symptoms associated with coronavirus-19. Ebola Screen: No symptoms or risks identified at this time. Risk Assessment: Do you want to hurt yourself or someone else? Patient reports no desire to harm self or others. Onset of symptoms was October 03, 2019. 16:46 Method Of Arrival: Ambulatory sv 16:46 Acuity: SHY 3 sv 16:47 Initial Sepsis Screen: Does the patient meet any 2 criteria? No. Patient's initial sv sepsis screen is negative. Does the patient have a suspected source of infection? No. Patient's initial sepsis screen is negative. Historical: - Allergies: 16:47 Morphine; sv - PMHx: 16:47 None; sv - PSHx: 16:47 Hysterectomy; Hemorroidectomy; Appendectomy; sv - Immunization history:: Adult Immunizations up to date. - Social history:: Smoking status: . Screenin:51 Abuse screen: Denies threats or abuse. Nutritional screening: No deficits noted. tw2 Tuberculosis screening: No symptoms or risk factors identified. Fall Risk None identified. Assessment: 17:00 General: Appears uncomfortable, slender, Behavior is calm, cooperative, appropriate for tw2 age. Pain: Denies pain. Neuro: Level of Consciousness is awake, alert, obeys commands, Oriented to person, place, time, situation. Cardiovascular: Heart tones S1 S2 Patient's skin is warm and dry. Respiratory: Airway is patent Respiratory effort is even, unlabored, Respiratory pattern is regular, symmetrical, Breath sounds are clear bilaterally. GI: Abdomen is flat, Bowel sounds present X 4 quads. Reports intolerance of fluids, intolerance of food, nausea, vomiting, since last night. GI: Pt is actively vomiting clear fluid, and dry heaving at this time, provider notified. : No signs and/or symptoms were reported regarding the genitourinary system. EENT: No signs and/or symptoms were reported regarding the EENT system. Derm: No signs and/or symptoms reported regarding the dermatologic system. Musculoskeletal: Range of motion: intact in all extremities. 18:00 Reassessment: pt back from CT, states she vomited in CT and is not feeling better, tw2 provider notified and medicated as ordered. 18:18 Reassessment: pts sister Jazlyn ph# [phone]. tw2 19:05 Reassessment: Patient appears in no apparent distress at this time. Patient and/or jb4 family updated on plan of care and expected duration. Pain level reassessed. Patient is alert, oriented x 3, equal unlabored respirations, skin warm/dry/pink. PT assisted back to bed, pt has steady gait and gave urine sample. 20:00 Reassessment: Patient appears in no apparent distress at this time. Patient and/or jb4 family updated on plan of care and expected duration. Pain level reassessed. Patient is alert, oriented x 3, equal unlabored respirations, skin warm/dry/pink. Updated pt and family on plan of care. 21:00 Reassessment: Patient and/or family updated on plan of care and expected duration. Pain jb4 level reassessed. Patient is alert, oriented x 3, equal unlabored respirations, skin warm/dry/pink. PT reports nausea has decreased but remains dizzy when changing positions. Family updated on plan of care. 22:00 Reassessment: No changes from previously documented assessment. Patient and/or family jb4 updated on plan of care and expected duration. Pain level reassessed. Patient is alert, oriented x 3, equal unlabored respirations, skin warm/dry/pink. 23:25 Reassessment: Patient appears in no apparent distress at this time. Patient and/or jb4 family updated on plan of care and expected duration. Pain level reassessed. Patient is alert, oriented x 3, equal unlabored respirations, skin warm/dry/pink. Pt resting in bed, updated on plan of care. Vital Signs: 16:47 BP 100 / 57; Pulse 76; Resp 16; Temp 97.8; Pulse Ox 100% ; Weight 58.97 kg; Height 5 sv ft. 7 in. (170.18 cm); 18:18 BP 100 / 63; Pulse 55; Resp 17; Pulse Ox 100% on R/A; tw2 19:30 BP 111 / 073; Pulse 61; Resp 16; Pulse Ox 100% on R/A; jb4 20:30 BP 119 / 55; Pulse 60; Resp 16; Pulse Ox 100% on R/A; jb4 21:30 BP 109 / 49; Pulse 73; Resp 16; Pulse Ox 100% on R/A; jb4 22:30 BP 99 / 45; Pulse 62; Resp 16; Pulse Ox 98% on R/A; jb4 23:15 BP 115 / 57; Pulse 52; Resp 15; Pulse Ox 98% on R/A; jb4 16:47 Body Mass Index 20.36 (58.97 kg, 170.18 cm) sv ED Course: 16:38 Patient arrived in ED. ds1 16:45 Arm band placed on. sv 16:46 Triage completed. sv 16:51 Lupe Muniz RN is Primary Nurse. tw2 16:52 Placed in gown. Bed in low position. Pulse ox on. NIBP on. tw2 17:04 Inserted saline lock: 22 gauge in right antecubital area, using aseptic technique. tw2 Blood collected. 17:06 Maddy Carpio FNP-C is PHCP. snw 17:06 Robin Johnson MD is Attending Physician. snw 17:40 CT Head Brain wo Cont In Process Unspecified. EDMS 19:00 Report given to Gladys. tw2 19:05 Primary Nurse role handed off by Lupe Muniz RN jb4 19:05 Oliver Kaye RN is Primary Nurse. jb4 19:16 Urine Microscopic Only Sent. tw2 19:16 Urine Culture Sent. tw2 21:28 Dom Deng PA is Hospitalizing Provider. snw 21:29 Hospitalizing Provider role handed off by Dom Deng PA snw 21:29 Omi Johnson MD is Hospitalizing Provider. snw 23:34 No provider procedures requiring assistance completed. Patient admitted, IV remains in jb4 place. Administered Medications: 17:30 Drug: Antivert 50 mg Route: PO; tw2 18:00 Follow up: Response: No adverse reaction tw2 17:30 Drug: Phenergan 25 mg Route: PO; tw2 19:00 Follow up: Response: No adverse reaction; No change in condition tw2 18:05 Drug: NS 0.9% 1000 ml Route: IV; Rate: 1 bolus; Site: right antecubital; tw2 19:20 Follow up: Response: No adverse reaction; IV Status: Completed infusion; IV Intake: jb4 1000ml 18:05 Drug: Valium 2 mg Route: IVP; Site: right antecubital; tw2 19:00 Follow up: Response: No adverse reaction; No adverse reaction, feeling "some better", tw2 still c/o dizziness 19:50 Drug: NS 0.9% 1000 ml Route: IV; Rate: 1 bolus; Site: right antecubital; jb4 20:50 Follow up: Response: No adverse reaction; IV Status: Completed infusion; IV Intake: jb4 1000ml 19:50 Drug: Antivert 25 mg Route: PO; jb4 21:00 Follow up: Response: No adverse reaction; No change in condition jb4 19:51 Drug: Phenergan 6.25 mg Route: IVP; Site: right antecubital; jb4 20:30 Follow up: Response: No adverse reaction; Nausea is decreased; Vomiting decreased jb4 21:00 Drug: Aspirin 81 mg Route: PO; jb4 21:30 Follow up: Response: No adverse reaction jb4 21:00 Drug: foLIC Acid 1 mg Route: IVPB; Site: right antecubital; jb4 21:05 Follow up: Response: No adverse reaction; IV Status: Completed infusion jb4 Intake: 19:20 IV: 1000ml; Total: 1000ml. jb4 20:50 IV: 1000ml; Total: 2000ml. jb4 Outcome: 21:29 Decision to Hospitalize by Provider. snw 23:34 Admitted to Med/surg accompanied by tech, via wheelchair, room 211, with chart, Report jb4 called to EVELYN Evans 23:34 Condition: stable 23:34 Discharge instructions given to patient, Instructed on the need for admit, Demonstrated understanding of instructions. 10/04 00:25 Patient left the ED. iw Addendum: 10/08/2019 11:02 Addendum: COVID-19 Result: Negative result given to RN to notify pt. Attempted to i w contact pt regarding negative COVID-19 swab results. Left voice mail. 16:19 Addendum: COVID-19 Result: Negative result given to RN to notify pt. Notified pt of i w negative COVID 19 swab results. Pt advised that even with a negative test result they should remain in isolation until symptom free for 3 days without medication. Pt also advised to return to the ED for worsening symptoms. Signatures: Dispatcher [employer] Maisha Loera RN RN sv Waters, Shelly, BOARDING MOTHER-C BOARDING MOTHER-Csnw Francisca Schmid ds1 Radha Bailey RN RN iw Lupe Muniz RN RN tw2 Oliver Kaye RN RN jb4 Corrections: (The following items were deleted from the chart) 10/03 23:45 21:00 Reassessment: Patient and/or family updated on plan of care and expected jb4 duration. Pain level reassessed. Patient is alert, oriented x 3, equal unlabored respirations, skin warm/dry/pink. PT reports nausea has decreased but remains dizzy when changing positions. jb4
--- NOTE | 2019-10-04 21:30 | EDPHYS ---
Physician Documentation [facility] Name: Melvina Wheeler Age: 74 yrs Sex: Female : 1945 Arrival Date: 10/04/2019 Time: 16:38 Bed 15 Private MD: ED Physician Robin Johnson HPI: 10/03 17:52 This 74 yrs old Female presents to ER via Ambulatory with complaints of snw Nausea, Dizziness. 17:52 The patient presents to the emergency department with nausea, that is moderate, that is snw severe. Onset: The symptoms/episode began/occurred suddenly, this morning. The symptoms are aggravated by movement. Associated signs and symptoms: Pertinent positives: nausea. Severity of symptoms: At their worst the symptoms were moderate severe this morning. The patient has not experienced similar symptoms in the past. It is unknown whether or not the patient has recently seen a physician. Historical: - Allergies: 16:47 Morphine; sv - PMHx: 16:47 None; sv - PSHx: 16:47 Hysterectomy; Hemorroidectomy; Appendectomy; sv - Immunization history:: Adult Immunizations up to date. - Social history:: Smoking status: . ROS: 17:49 Constitutional: Negative for fever, chills, and weight loss, Eyes: Negative for injury, snw pain, redness, and discharge, ENT: Negative for injury, pain, and discharge, Neck: Negative for injury, pain, and swelling, Cardiovascular: Negative for chest pain, palpitations, and edema, Respiratory: Negative for shortness of breath, cough, wheezing, and pleuritic chest pain, Abdomen/GI: Negative for abdominal pain, vomiting, diarrhea, and constipation, and positive for nausea Back: Negative for injury and pain, : Negative for injury, bleeding, discharge, and swelling, MS/Extremity: Negative for injury and deformity, Skin: Negative for injury, rash, and discoloration. 17:49 Neuro: Positive for dizziness. Exam: 17:41 Constitutional: This is a well developed, well nourished patient who is awake, alert, snw and in no acute distress. Head/Face: Normocephalic, atraumatic. Eyes: Pupils equal round and reactive to light, extra-ocular motions intact. Lids and lashes normal. Conjunctiva and sclera are non-icteric and not injected. Cornea within normal limits. Periorbital areas with no swelling, redness, or edema. ENT: Nares patent. No nasal discharge, no septal abnormalities noted. Tympanic membranes are normal and external auditory canals are clear. Oropharynx with no redness, swelling, or masses, exudates, or evidence of obstruction, uvula midline. Mucous membranes moist. Neck: Trachea midline, no thyromegaly or masses palpated, and no cervical lymphadenopathy. Supple, full range of motion without nuchal rigidity, or vertebral point tenderness. No Meningismus. Chest/axilla: Normal chest wall appearance and motion. Nontender with no deformity. No lesions are appreciated. Cardiovascular: Regular rate and rhythm with a normal S1 and S2. No gallops, murmurs, or rubs. Normal PMI, no JVD. No pulse deficits. Respiratory: Lungs have equal breath sounds bilaterally, clear to auscultation and percussion. No rales, rhonchi or wheezes noted. No increased work of breathing, no retractions or nasal flaring. Abdomen/GI: Soft, non-tender, with normal bowel sounds. No distension or tympany. No guarding or rebound. No evidence of tenderness throughout. Back: No spinal tenderness. No costovertebral tenderness. Full range of motion. Skin: Warm, dry with normal turgor. Normal color with no rashes, no lesions, and no evidence of cellulitis. MS/ Extremity: Pulses equal, no cyanosis. Neurovascular intact. Full, normal range of motion. Neuro: Awake and alert, GCS 15, oriented to person, place, time, and situation. Cranial nerves II-XII grossly intact. Motor strength 5/5 in all extremities. Sensory grossly intact. Cerebellar exam normal. minimal nystagmus bilaterally with head turns Psych: Awake, alert, with orientation to person, place and time. Behavior, mood, and affect are within normal limits. Vital Signs: 16:47 BP 100 / 57; Pulse 76; Resp 16; Temp 97.8; Pulse Ox 100% ; Weight 58.97 kg; Height 5 sv ft. 7 in. (170.18 cm); 18:18 BP 100 / 63; Pulse 55; Resp 17; Pulse Ox 100% on R/A; tw2 19:30 BP 111 / 073; Pulse 61; Resp 16; Pulse Ox 100% on R/A; jb4 20:30 BP 119 / 55; Pulse 60; Resp 16; Pulse Ox 100% on R/A; jb4 21:30 BP 109 / 49; Pulse 73; Resp 16; Pulse Ox 100% on R/A; jb4 22:30 BP 99 / 45; Pulse 62; Resp 16; Pulse Ox 98% on R/A; jb4 23:15 BP 115 / 57; Pulse 52; Resp 15; Pulse Ox 98% on R/A; jb4 16:47 Body Mass Index 20.36 (58.97 kg, 170.18 cm) sv MDM: 17:10 Patient medically screened. snw 19:33 Data reviewed: vital signs, nurses notes. Data interpreted: Pulse oximetry: on room air snw is 100 %. Interpretation: normal. Counseling: I had a detailed discussion with the patient and/or guardian regarding: the historical points, exam findings, and any diagnostic results supporting the discharge/admit diagnosis, lab results, radiology results. Response to treatment: the patient's symptoms have mildly improved after treatment, continued dehydration, will give another bolus and then re-evaluate. If pt remains dizzy post 2nd bolus, will admit for MRI tomorrow. Pt voices understanding of plan of care.. 20:17 Physician consultation: Anson Leach MD was called at 20:17, regarding consult. snw 21:30 Physician consultation: Dom CABRERA was called at 21:30, was contacted at snw 21:30, regarding admission, to the telemetry unit. 10/03 17:09 Order name: Basic Metabolic Panel; Complete Time: 17:41 snw 10/03 17:09 Order name: CBC with Diff; Complete Time: 17:37 snw 10/03 20:11 Interpretation: RBC 5.11. snw 10/03 17:09 Order name: Hepatic Function; Complete Time: 17:41 snw 10/03 17:09 Order name: Lipase; Complete Time: 17:41 snw 10/03 17:09 Order name: Urine Culture snw 10/03 17:09 Order name: Urine Microscopic Only; Complete Time: 19:20 snw 10/03 17:09 Order name: CT Head Brain wo Cont; Complete Time: 17:56 snw 10/03 19:19 Order name: Urine Dipstick--Ancillary (enter results); Complete Time: 19:30 mw2 10/03 20:12 Order name: Troponin (emerg Dept Use Only) snw 10/03 20:13 Order name: Troponin (Emerg Dept Use Only); Complete Time: 21:23 EDMS 10/03 17:09 Order name: IV Saline Lock; Complete Time: 17:24 snw 10/03 17:09 Order name: Labs collected and sent; Complete Time: 17:25 snw 10/03 17:09 Order name: Urine Dipstick-Ancillary (obtain specimen); Complete Time: 19:15 snw 10/03 20:12 Order name: EKG; Complete Time: 20:13 snw 10/03 20:12 Order name: EKG - Nurse/Tech; Complete Time: 21:21 snw EC:30 Rate is 210 beats/min. Rhythm is regular. QRS [place] is Normal. IA interval is normal. snw QRS interval is normal. QT interval is normal. No Q waves. Clinical impression: Sinus bradycardia. Administered Medications: 17:30 Drug: Antivert 50 mg Route: PO; tw2 18:00 Follow up: Response: No adverse reaction tw2 17:30 Drug: Phenergan 25 mg Route: PO; tw2 19:00 Follow up: Response: No adverse reaction; No change in condition tw2 18:05 Drug: NS 0.9% 1000 ml Route: IV; Rate: 1 bolus; Site: right antecubital; tw2 19:20 Follow up: Response: No adverse reaction; IV Status: Completed infusion; IV Intake: jb4 1000ml 18:05 Drug: Valium 2 mg Route: IVP; Site: right antecubital; tw2 19:00 Follow up: Response: No adverse reaction; No adverse reaction, feeling "some better", tw2 still c/o dizziness 19:50 Drug: NS 0.9% 1000 ml Route: IV; Rate: 1 bolus; Site: right antecubital; jb4 20:50 Follow up: Response: No adverse reaction; IV Status: Completed infusion; IV Intake: jb4 1000ml 19:50 Drug: Antivert 25 mg Route: PO; jb4 21:00 Follow up: Response: No adverse reaction; No change in condition jb4 19:51 Drug: Phenergan 6.25 mg Route: IVP; Site: right antecubital; jb4 20:30 Follow up: Response: No adverse reaction; Nausea is decreased; Vomiting decreased jb4 21:00 Drug: Aspirin 81 mg Route: PO; jb4 21:30 Follow up: Response: No adverse reaction jb4 21:00 Drug: foLIC Acid 1 mg Route: IVPB; Site: right antecubital; jb4 21:05 Follow up: Response: No adverse reaction; IV Status: Completed infusion jb4 Disposition: 10/04/19 21:29 Hospitalization ordered by Omi Johnson for Observation. Preliminary diagnosis are Dizziness and giddiness, Dehydration. - Bed requested for Telemetry/MedSurg (observation). - Status is Observation. iw - Condition is Stable. - Problem is new. - Symptoms are unchanged. Addendum: 10/08/2019 07:12 Co-signature as Attending Physician, Robin Johnson MD. r n Signatures: Dispatcher [employer] EDMaisha Sandoval RN RN Cate Singh RN Maddy Alvarado, BAGGAGE HANDLER-C BAGGAGE HANDLER-Csnw Radha Bailey RN RN Robin Johnson MD MD rn Wise, Tara, RN RN tw2 Oliver Kaye RN RN jb4 Corrections: (The following items were deleted from the chart) 10/03 21: 21:29 Hospitalization Ordered by Dom CABRERA for Observation. Preliminary snw diagnosis is Dizziness and giddiness; Dehydration. Bed requested for Telemetry/MedSurg (observation). Status is Observation. Condition is Stable. Problem is new. Symptoms are unchanged. snw 23: 21:29 10/04/2019 21:29 Hospitalization Ordered by Omi Johnson MD for Observation. Preliminary diagnosis is Dizziness and giddiness; Dehydration. Bed requested for Telemetry/MedSurg (observation). Status is Observation. Condition is Stable. Problem is new. Symptoms are unchanged. snw 10/04 00:25 10/03 23:03 10/04/2019 21:29 Hospitalization Ordered by Omi Johnson MD for iw Observation. Preliminary diagnosis is Dizziness and giddiness; Dehydration. Bed requested for Telemetry/MedSurg (observation). Status is Observation. Condition is Stable. Problem is new. Symptoms are unchanged.
[2019-10-05] MEDS ORDERED: ONDANSETRON 4 MG/2 ML VIAL IV PRN (00:10)
[2019-10-05] MEDS ORDERED: ALPRAZOLAM 0.25 MG TABLET PO PRN (00:10)
--- NOTE | 2019-10-05 00:20 | P.HP ---
Certification for Inpatient Patient admitted to: Observation With expected LOS: <2 Midnights Patient will require the following post-hospital care: None Practitioner: I am a practitioner with admitting privileges, knowledge of patient current condition, hospital course, and medical plan of care. Services: Services provided to patient in accordance with Admission requirements found in Title 42 Section 412.3 of the Code of Federal Regulations <Dom Deng - Last Filed: 10/05/19 00:15> Patient History Date of Service: 10/05/19 Reason for admission: CVA?/dizziness History of Present Illness: 74-year-old female with no significant past medical history presents to the emergency room with complaints of nausea and dizziness. States that it started suddenly this morning. It is aggravated by movement and relieved by staying still. Patient also complaining of nausea and has had 2 or 3 episodes of vomiting. Patient vomited during CT imaging of the head. In the ER blood work is fairly unremarkable. Patient was treated with IV fluids and medications in the ED. She was improving but continued with worsening sympt oms again. Neurology was consulted and Dr. Leach will follow up with patient in the morning. Patient may require MRI to rule out CVA. Patient will be placed in observation and further evaluated. Home medications list reviewed: No - Past Medical/Surgical History Diabetic: No Past Medical History: Reviewed- Non-Contributory -: None -: Hysterectomy -: Appendectomy -: Hemorrhoidectomy - Family History Family History: Reviewed- Non-Contributory - Social History Smoking Status: Never smoker Smoking therapy provided: No Patient receptive to therapy: No Alcohol use: No CD- Drugs: No Caffeine use: No Place of Residence: Home <Dom Deng - Last Filed: 10/05/19 00:15> Date of Service: 10/06/19 <Omi Johnson - Last Filed: 10/06/19 20:20> Allergies morphine Adverse Reaction (Verified 10/05/19 00:30) Nausea/Vomiting Review of Systems General: As per HPI Eyes: Unremarkable ENT: Unremarkable Respiratory: Unremarkable Cardiovascular: Unremarkable Gastrointestinal: Nausea, Vomiting, As per HPI Genitourinary: Unremarkable Musculoskeletal: Unremarkable Integumentary: Unremarkable Neurological: Incoordination, As per HPI Lymphatics: Unremarkable <Dom Deng - Last Filed: 10/05/19 00:15> Physical Examination - Vital Signs Temperature: 97.8 F Blood Pressure: 109/49 Pulse: 73 Respirations: 16 Pulse Ox (%): 100 (RA) - Physical Exam General: Alert, In no apparent distress, Oriented x3 HEENT: Atraumatic, Normocephalic, PERRLA, Mucous membr. moist/pink Neck: Supple, Other (Trachea midline) Respiratory: Clear to auscultation bilaterally, Normal air movement Cardiovascular: No edema, Normal pulses, Regular rate/rhythm, Normal S1 S2 Capillary refill: <2 Seconds Gastrointestinal: Normal bowel sounds, Soft and benign, Non-distended Musculoskeletal: No clubbing, No swelling, No contractures, No erythema, No tenderness Integumentary: No rashes, No breakdown, No significant lesion, No tenderness/swelling Neurological: Normal speech, Normal strength at 5/5 x4 extr, Normal tone, Abnormal gait - Studies Laboratory Data (last 24 hrs) 10/04/19 17:04: WBC 9.5, Hgb 15.6 H, Hct 47.2 H, Plt Count 227 10/04/19 17:04: Sodium 141, Potassium 4.3, BUN 12, Creatinine 0.85, Glucose 115 H, Total Bilirubin 0.5, AST 16, ALT 19, Alkaline Phosphatase 79, Lipase 127 <Dom Deng - Last Filed: 10/05/19 00:15> Assessment and Plan - Plan Impression: CVA versus dizziness: Nausea and vomiting: Plan: CVA versus dizziness: CT of the head was negative for acute pathology. Will order MRI of the brain for the morning. Neurology consulted Dr. Leach will evaluate patient in the morning. Nausea and vomiting: Continue IV anti emetics and IV fluids. Monitor. Discharge Plan: Home Plan to discharge in: 48 Hours - Advance Directives Does patient have a Living Will: No Does patient have a Durable POA for Healthcare: No - Code Status/Comfort Care Code Status Assessed: Yes Time Spent Managing Pts Care (In Minutes): 55 <Dom Deng - Last Filed: 10/05/19 00:15> Physician Review Additional Text: Plan of care reviewed with Dom Deng, and I agree with plan as noted above. <Omi Johnson - Last Filed: 10/06/19 20:20>
[2019-10-05] MEDS ORDERED: NA CHLORIDE 0.9% 1,000 ML IV SCH (01:02)
[2019-10-05] MEDS: NA CHLORIDE 0.9% 1,000 ML IV SCH ×2 (01:16→14:20)
[2019-10-05 01:17] VITALS: BMI 20.5
[2019-10-05 04:49] LABS: CKMB Creatine Kinase MB < 1.0 ng/mL (0.3-3.6); Creatine Phosphokinase 60 U/L (26-192); HDL Cholesterol 49 mg/dL (40-60); LDL Cholesterol, Calculated 131 (<130); Troponin I < 0.02 ng/mL (0.0-0.045)
--- NOTE | 2019-10-05 07:54 | EKG ---
Test Date: 2019-10-04 Test Time: 20:59:45 Physician Compensation Analyst: SUSU MEASUREMENT RESULTS: Intervals: Rate: 59 WA: 154 QRSD: 78 QT: 438 QTc: 433 [place]: P: 81 WA: 154 QRS: 81 T: 86 INTERPRETIVE STATEMENTS: Sinus bradycardia Otherwise normal ECG No previous ECG available for comparison Electronically Signed On 10-05-19 07:53:09 CDT by Israel Aviles
--- NOTE | 2019-10-05 08:20 | RAD REPORT ---
EXAM DESCRIPTION: - CP - 10/05/2019 8:11 am CLINICAL HISTORY: bradycardia, dizziness COMPARISON: No comparisons TECHNIQUE: Real-time sonographic evaluation of bilateral carotid and vertebral systems was performed . Rogers scale and Doppler interrogation were performed with waveform tracing bilaterally. FINDINGS: Normal high resistance waveforms are noted in both external carotid arteries. The common c arotid arteries and internal carotid arteries show normal low resistance waveforms. Mild calcified plaquing changes are present in the left carotid bulb. Left ICA is tortuous. No other significant plaquing changes. No dissection identified. Peak systolic and end diastolic velocity valu es and the ICA/CCA ratios are in the non-hemodynamically significant range. Antegrade flow seen in both vertebral arteries. Velocity values and ratios were recorded and are retained in the patient's imaging records. IMPRESSION: Calcified plaquing changes are present in the left carotid bulb without a significant na rrowing of the vessel lumen. No evidence of a hemodynamically significant stenosis.
[2019-10-05] MEDS ORDERED: ENOXAPARIN 40 MG/0.4 ML SQ SCH (09:00)
[2019-10-05 10:02] VITALS: O2SAT 99
--- NOTE | 2019-10-05 11:33 | RAD REPORT ---
EXAM DESCRIPTION: MRI - Brain W/Wo Cont - 10/05/2019 11:05 am CLINICAL HISTORY: dizziness, stroke-like symptoms COMPARISON: MRA Head Wo Cont dated 10/05/2019; MRA Neck W/Wo Cont dated 10/05/2019; Head Brain Wo Cont dated 10/04/2019 TECHNIQUE: Sagittal and axial T1-weighted images were obtained. Axial PD/heavily T2-weighted and T2- FLAIR images were obtained along with axial DWI/ADC mapping sequences. Coronal heavily T2 weighted s equence obtained. Axial and coronal post-contrast T1-weighted images were also obtained. A 13 ml Mu ltihance contrast following utilized. FINDINGS: No intracranial hemorrhage, mass or acute infarction. There is no edema or shift of midli ne structures. No extra-axial fluid collections. Rogers-matter/white matter junction is preserved. Sig nal voids are seen as a normal finding in the major intracranial vessels. 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 No associated cavernoma identified. No acute or chronic hem orrhagic component identifiable. No other vascular malformations identified. Ventricles are normal. Post-contrast images show no abnormal brain parenchyma or dural enhancement. There is normal enhancem ent of the venous angioma. Mastoid air cells and paranasal sinuses are clear. IMPRESSION: No infarction or acute intracranial finding identified. Patient has moderate-sized venous angioma within the right cerebellum. No cavernoma identifiable at t his site. This is believed to be incidental to the current clinical presentation.
--- NOTE | 2019-10-05 11:40 | RAD REPORT ---
EXAM DESCRIPTION: MRI - MRA Head Wo Cont - 10/05/2019 11:06 am CLINICAL HISTORY: Dizziness, stroke-like symptoms COMPARISON: CT head October 03, MRI brain October 04 TECHNIQUE: Axial and coronal 3D [id number] image acquisition was performed. 3D rotational images were generated with source and reconstruction images reviewed. Horizontal and vertical axis rotation al views generated using MIP protocol. FINDINGS: No aneurysm or arterial vascular malformation seen. Patient has a known right cerebellum v enous angioma. Mild atherosclerotic changes are seen in the bilateral middle cerebral and anterior cerebral artery d istributions. No basilar or internal carotid artery stenosis identifiable. No dissection is present. IMPRESSION: Mild intracranial atherosclerotic changes with no acute finding.
--- NOTE | 2019-10-05 11:43 | RAD REPORT ---
EXAM DESCRIPTION: MRI - MRA Neck W/Wo Cont - 10/05/2019 11:05 am CLINICAL HISTORY: Dizziness, stroke-like symptoms COMPARISON: MRI head same date, MRA neck same date, carotid ultrasound same date TECHNIQUE: MR angiography of the cervical vasculature performed. Coronal imaging plane acquisition u tilized. A 13 MultiHance contrast volume was utilized. Coronal reformatted images were generated and reviewed. Vertical axis 3D rotational projections obtained using maximum intensity projection protoco l. FINDINGS: Aortic arch is bovine configuration. No origin stenoses. Left vertebral artery arises from the aortic arch is a normal variant. Vertebral arteries are codominant. No dissection of the carotid or vertebral vasculature seen. Left internal carotid artery is mildly tortuous. No significant ather osclerotic change or luminal narrowing. The plaquing seen on the ultrasound does not generate any lum inal narrowing on MRA neck imaging. IMPRESSION: Contrast enhanced MRA neck imaging shows no significant or suspicious finding.
[2019-10-05 12:14] VITALS: BP 106/54; TEMP 97.2
--- NOTE | 2019-10-05 21:23 | CON ---
Reason For Consultation: Consultation called because of positional vertigo. History Of Present Illness: Ms. Wheeler is a 74-year-old right-handed patient with a long history of vertigo she says since childhood. She comes in after an episode lasting approximately 2 d ays. She recalls as a young child if she ever stood on her head and then got back on her feet, she w ould have vertigo lasting several minutes. Typically, the events occur on changing position of her h ead, either turning right to left or going from a sitting to standing position. She feels like the w orld is moving back and forth. She begins very sick to the stomach and actually vomits. Episodes la st from several minutes up to 2 days. Her most recent event that precipitated admission began on Tue. She reports receiving some IV fluids, which improved her symptoms and it resolved within about [address] scan showed no acute ischemic or hemorrhagic change. Brain MRI was remarkable for a right cerebellum venous angioma that is moderate size, not felt to be a contributing factor to her symptoms. She had no ischemic or hemorrhagic abnormalities. The neck MRA showed no significant abnormalities and the brain MRA showed no significant arthrosclerotic changes. The blood work was re markable for mild perhaps dehydration with slightly elevated glucose, elevated hemoglobin, hematocrit , and red blood cell count along with neutrophils being slightly elevated at 74.6 with normal white b lood cell count of 9.5. Urinalysis showed 4+ ketones, blood 2+, red blood cells were 5-10. Past Medical History: As indicated, long history of vertigo. Past Surgical History: Hysterectomy, appendectomy, hemorrhoidectomy. Family History: Noncontributory. Social History: No alcohol, tobacco, or IV drug use. Allergies: MORPHINE CAUSES NAUSEA AND VOMITING. Review of Systems: Aside from mentioned above with her nausea, vomiting, and certain head positions, she has no recent f saji, chills, myalgias, arthralgias, rash, headache, weight change, psychiatric issues, gastrointest inal or genitourinary issues aside from the nausea and vomiting with her vertigo. Physical Examination: Vital Signs: Blood pressure 99 ranging to 125/52 to 58, pulse ranged from 50 to 56, temperature 97.4 , oxygen saturation 98% to 99% on room air, and respiratory rate 16. Weight 131 pounds and height 5. 7, BMI 20.5. General: Ms. Wheeler is resting comfortably in bed. She is in no acute distress. HEENT: She is normocephalic, atraumatic. Sclerae anicteric. Oropharynx is pink and moist. Neck: Supple. Chest: Clear. Heart: Regular. Extremities: No clubbing, cyanosis, or edema. Neurologic: She is alert and oriented to person, place, time, and situation. She follows all comman ds appropriately. She has no focal cranial nerve, motor, coordination, sensory or gait deficits. Assessment: Ms. Wheeler is a 74-year-old patient with benign paroxysmal positional vertigo. She was shown how to perform the Oneyda maneuver and given meclizine 25 mg every 8 hours as needed. Plan: She will be discharged home and perform the Oneyda maneuver as required and do use meclizine as needed. She may follow up with Dr. Leach in clinic 1 month after discharge. SALOME/MT Voice ID: [id number] Report ID: [id number]
--- NOTE | 2019-10-05 21:31 | P.DS ---
Admission Date: 10/04/19 Discharge Date: 10/06/19 Disposition: ROUTINE DISCHARGE Discharge Condition: GOOD Reason for Admission: CVA?/dizziness Consultations: neurology - Dr. Leach Procedures: CT - Head Brain Wo Cont - 10/04/2019 5:40 pm IMPRESSION: No acute intracranial abnormality. US - CP - 10/05/2019 8:11 am IMPRESSION: Calcified plaquing changes are present in the left carotid bulb without a significant narrowing of the vessel lumen. No evidence of a hemodynamically significant stenosis. MRI - MRA Neck W/Wo Cont - 10/05/2019 11:05 am IMPRESSION: Contrast enhanced MRA neck imaging shows no significant or suspicious finding. MRI - MRA Head Wo Cont - 10/05/2019 11:06 am IMPRESSION: Mild intracranial atherosclerotic changes with no acute finding. Problem List: CVA versus dizziness Nausea and vomiting Brief History of Present Illness: 74-year-old female with no significant past medical history presents to the emergency room with complaints of nausea and dizziness. States that it started suddenly this morning. It is aggravated by movement and relieved by staying still. Patient also complaining of nausea and has had 2 or 3 episodes of vomiting. Patient vomited during CT imaging of the head. In the ER blood work is fairly unremarkable. Patient was treated with IV fluids and medications in the ED. She was improving but continued with worsening symptoms again. Neurology was consulted and Dr. Leach will follow up with patient in the morning. Patient may require MRI to rule out CVA. Patient will be placed in observation and further evaluated. Hospital Course: Patient underwent above workup and was admitted to the hospital. Workup was negative for acute abnormalities. It was felt patient was experiencing symptoms of BPPV. She was instructed on Oneyda maneuvers and given a prescription for meclizine. She had resolution of her symptoms and felt back to her baseline on day of discharge. Vital Signs/Physical Exam: Temp Pulse Resp BP Pulse Ox 97.2 F 56 16 106/54 L 98 10/05/19 12:00 10/05/19 12:00 10/05/19 12:00 10/05/19 12:10/05/19 12:00 General: Alert, In no apparent distress, Oriented x3 HEENT: PERRLA, Mucous membr. moist/pink, EOMI, Sclerae nonicteric Neck: No LAD Respiratory: Clear to auscultation bilaterally, Normal air movement Cardiovascular: No edema, Regular rate/rhythm, Normal S1 S2 Gastrointestinal: Normal bowel sounds, Soft and benign, No tenderness Musculoskeletal: No erythema, No tenderness Integumentary: No rashes, No erythema Neurological: Normal speech, Cranial nerves 3-12 intact, Normal affect Laboratory Data at Discharge: WBC 9.5 K/uL (4.3-10.9) 10/04/19 17:04 Hgb 15.6 g/dL (12.0-15.0) H 10/04/19 17:04 Hct 47.2 % (36.0-45.0) H 10/04/19 17:04 Plt Count 227 K/uL (152-406) 10/04/19 17:04 Sodium 141 mmol/L (136-145) 10/04/19 17:04 Potassium 4.3 mmol/L (3.5-5.1) 10/04/19 17:04 BUN 12 mg/dL (7-18) 10/04/19 17:04 Creatinine 0.85 mg/dL (0.55-1.3) 10/04/19 17:04 Glucose 115 mg/dL (74-106) H 10/04/19 17:04 Total Bilirubin 0.5 mg/dL (0.2-1.0) 10/04/19 17:04 AST 16 U/L (15-37) 10/04/19 17:04 ALT 19 U/L (12-78) 10/04/19 17:04 Alkaline Phosphatase 79 U/L (45-117) 10/04/19 17:04 Troponin I Cancelled 10/05/19 16:15 Triglycerides 82 mg/dL (<150) 10/05/19 03:45 Cholesterol 196 mg/dL (<200) 10/05/19 03:45 HDL Cholesterol 49 mg/dL (40-60) 10/05/19 03:45 Cholesterol/HDL Ratio 4.00 10/05/19 03:45 Lipase 127 U/L (73-393) 10/04/19 17:04 Home Medications: NK [No Home Meds] 10/05/19 Patient Discharge Instructions: Follow up with your PCP within 1 week Diet: Regular Activity: Ad leonard Followup: Anson Leach MD [ASSOCIATE-ACTIVE - CAN ADMIT] - Time spent managing pt's care (in minutes): 45
== END 2019-10-05 15:33 | disposition home or self-care (01) ==
LOC: ER 16:36 → ERHOLD 23:56 → 2ND 10-05 00:03
PROVIDERS: ADMIT Hospitalist; ATTEND Hospitalist
DX: H81.10 Benign paroxysmal vertigo, unspecified ear (principal); R11.2 Nausea with vomiting, unspecified; R00.1 Bradycardia, unspecified; E86.0 Dehydration; I65.22 Occlusion and stenosis of left carotid artery; I67.2 Cerebral atherosclerosis; Q28.3 Other malformations of cerebral vessels; Z20.828 Contact with and (suspected) exposure to other viral communicable diseases
CPT/HCPCS: 96361; 93005; 87088; 85025; 87086; 80048; 36415; 82550; 80061; 82947 ×2; 80076; 84484 ×4; 82553; 83690; 70450; 93880; 70553; 70544; 70549; 96375; 96374; 99285; U0002; A9577; J2550; J3360; J7030 ×3; G0378 ×2; 81003; 81015; J1650; J8597; Q0169